=== PATIENT | male | born 1995 | race Caucasian/White ===

== ENCOUNTER 2018-04-14 04:17 | Inpatient (IN) | payer BC ==
[~2018-04-14] VITALS: Ht 172.7 cm; Wt 58.4 kg
[2018-04-14 06:47] VITALS: BP 105/53; PULSE 53; RESP 16; TEMP 97.8; O2SAT 98
[2018-04-14] MEDS ORDERED: diphenhydrAMINE HCL 50 MG CAP - HS PRN PO (07:45)
[2018-04-14] MEDS ORDERED: ALUMINUM/MAGNESIUM/SIMETH 30 ML CUP PO PRN (07:45)
[2018-04-14] MEDS ORDERED: LORazepam 2 MG/ML VIAL IM PRN (07:45)
[2018-04-14] MEDS ORDERED: MAGNESIUM HYDROXIDE SUSP 30 ML CUP PO PRN (07:45)
[2018-04-14] MEDS ORDERED: diphenhydrAMINE HCL 50 MG/ML VIAL - HS PRN IM (07:45)
[2018-04-14] MEDS ORDERED: LORazepam 1 MG TAB PO PRN (07:45)
[2018-04-14] MEDS ORDERED: ACETAMINOPHEN 325 MG TAB PO PRN (07:45)
[2018-04-14] MEDS ORDERED: hydrOXYzine HCL 50 MG TAB PO PRN (07:45)
[2018-04-14] MEDS: NICOTINE 21 MG/24 HR PATCH T-DERMAL SCH (09:00)
[2018-04-14] MEDS: buPROPion HCL 150 MG SUSTAINED RELEASE TAB PO SCH (12:00)
[2018-04-14] MEDS: REMOVE OLD NICOTINE PATCH T-DERMAL SCH (13:02)
--- NOTE | 2018-04-14 13:40 | HHI.HP ---
Provisional Diagnosis Admission Date April 14, 2018 at 05:35 Timnath I. Major depressive disorder Certification of Person's Competence To Provide Express and Informed Consent I have personally examined Wagner Alfredo , a person being served at [facility] on, April 14, 2018 13:20. Express and informed consent means consent voluntarily given in writing, by a competent person, after sufficient explanation and disclosure of the subject matter involved to enable the person to make a knowing and willful decision without any element of force, fraud, deceit, duress, or other form of constraint or coercion. This person is 18 years of age or older, is not now known to be incompetent to consent to treatment with a guardian advocate, and does not have a health care surrogate or proxy currently making medical treatment decisions. I have found this person to be one of the following: [xxx] Competent to provide express and informed consent, as defined above, for voluntary admission to this facility and is competent to provide express and informed consent for treatment. He/she has the consistent capacity to make well reasoned, willful, and knowing decisions concerning his or her medical or mental health treatment. The person fully and consistently understands the purpose of the admission for examination/placement and is fully capable of personally exercising all rights assured [place] [] Incompetent to provide express and informed consent to voluntary admission, and this is incompetent to provide express and informed consent to treatment. The person must be transferred to involuntary status and a petition for a guardian advocate filed with the Circuit Court. [] Refusing to provide express and informed consent to voluntary admission but is competent to provide express and informed consent for treatment. The person must be discharged or transferred to involuntary status. Form shall be completed within 24 hours of a person's arrival at the receiving facility and filed in the clinical record of each person: 1. Admitted on a voluntary basis 2. Permitted to provide express and informed consent to his/her own treatment 3. Allowed to transfer from involuntary to voluntary status 4. Prior to permitting a person to consent to his or her own treatment after having been previously found incompetent to consent to treatment. History of Present Illness Capacity: Has Capacity HPI Patient is a 22-year-old man, , unemployed, with no past psychiatric history, no previous psychiatric admissions, no previous suicide attempt or self-injurious behavior, with substance use history significant for recreational marijuana use, no past medical history, who was transferred from medical Hospital after patient was brought in by EMS due to suicide attempt via overdose which patient was admitted to the inpatient psychiatry for further evaluation and management. Patient reports that for the past couple of weeks he had been noticing having decreased sleep, appetite, concentration, I have been feeling depressed after and daughter have left to [place] along with feelings of guilt, feeling hopeless and having suicidal ideation recently. She denies as patient states that he has been feeling guilty of "not being there to support my ".. Patient reports having had suicide ideations on the day of his overdose which she took 6-8 tablets of ibuprofen in attempt to end his life but after ingesting the tablets have regretted doing so and has self-induced vomiting in contact us and about what he had done which she had called marijuana was brought to the hospital for further evaluation. Patient states that he immediately regretted what he had done and wanted to states that he is feeling very lonely and very sad due to missing his and daughter although states that he has family living near the area that he could have called for support but did not. Patient states that he is feeling remorseful recent actions, noted to be tearful during interview states that it was "stupid thing to do". Patient this time continues report feeling down but denying any's current suicide ideations at this time nor any homicidal ideations , perceptual disturbances or delusions. Family psychiatric history: Aunt with depression, no suicide in the family Past psychiatric history: No previous psychiatric diagnoses, no prior psychiatric admissions, no previous suicide attempt or self-injurious behavior, no outpatient mental health provider. No previous medication trials, history of abuse. Substance use history: Tobacco use 1 pack per day, alcohol use once per month usually more than 6 beers at a time, last use was 1 month ago. Marijuana use 3 times a month usually one joint at a time last time being 1 week ago. Patient denies use of any other drugs. Patient denies any previous detox or rehabilitation programs. Past medical history: Denies Allergies: NKDA Social history: , has 1 2-year-old daughter and are most moved recently to [place], is employed, no history of service or access to firearms. No legal history in the past. Review of Systems Except as stated in HPI: all other systems reviewed are Neg Past Psych History Psychological trauma history Denies Violence risk - others (6 mos) Low Violence risk - self (6 mos) Elevated due to recent suicide attempt Substance Abuse History Drugs/Alcohol past 12 months Tobacco use 1 pack per day, alcohol use once per month usually more than 6 beers at a time, last use was 1 month ago. Marijuana use 3 times a month usually one joint at a time last time being 1 week ago. Patient denies use of any other drugs. Patient denies any previous detox or rehabilitation programs. Past Family Social History Coded Allergies: No Known Allergies (Unverified , 04/14/18) Current Medications Medications (Trade) Dose Ordered Sig/Francisco Route Start Time Stop Time Status Last Admin (Ativan) 1 mg Q6H PRN PO 04/14/18 07:45 (Ativan Inj) 1 mg Q6H PRN IM 04/14/18 07:45 (Benadryl) 50 mg HS PRN PO 04/14/18 07:45 (Benadryl Inj) 50 mg HS PRN IM 04/14/18 07:45 (Tylenol) 650 mg Q4H PRN PO 04/14/18 07:45 (Milk Of Magnesia Liq) 30 ml DAILY PRN PO 04/14/18 07:45 (Mag-Al Plus Susp Liq) 30 ml Q6H PRN PO 04/14/18 07:45 (Habitrol 21 Mg Patch.24 Hr) 1 patch DAILY T-DERMAL 04/14/18 09:00 Miscellaneous Information 1 HS T-DERMAL 04/14/18 21:00 (Wellbutrin Sr) 150 mg DAILY PO 04/14/18 12:00 04/14/18 12:00 Family Psych History Aunt with depression Social History , has 1 2-year-old daughter and are most moved recently to [place], is employed, no history of service or access to firearms. No legal history in the past. Patient's Strengths (min. 2) Verbal and communicative Physical Exam Patient not noted to be in acute distress, no gross motor abnormalities, no tremors or EPS, no noted psychomotor retardation or agitation. Vital Signs Vital Signs Date Time Temp Pulse Resp B/P (MAP) Pulse Ox O2 Delivery O2 Flow Rate FiO2 04/14/18 06:47 97.8 53 16 105/53 (70) 98 Mental Status Examination Appearance: Disheveled Consciousness: Alert Orientation: Person, Place, Date/Time Motor Activity: Normal gait Speech: Unremarkable Language: Adequate Fund of Knowledge: Inadequate Attention and Concentration: Adequate Memory: Unremarkable Mood: Sad Affect: Sad, Other (Tearful) Thought Process & Associations: Intact, Linear Thought Content: Appropriate Hallucination Type: None Delusion Type: None Suicidal Ideation: Yes (Denies today) Suicidal Plan: No Suicidal Intention: No Homicidal Ideation: No Homicidal Plan: No Homicidal Intention: No Insight: Poor Judgment: Poor Assessment & Plan Problem List: (1) Major depressive disorder, single episode, severe without psychotic features ICD Codes: F32.2 - Major depressive disorder, single episode, severe without psychotic features Assessment & Plan Estimated LOS: 5-7 days. Patient is a 22-year-old man, , unemployed, with no past psychiatric history, no previous psychiatric admissions , no previous suicide attempt or self-injurious behavior, with substance use history significant for recreational marijuana use, no past medical history, who was transferred from medical Hospital after patient was brought in by EMS due to suicide attempt via overdose which patient was admitted to the inpatient psychiatry for further evaluation and management. Patient with significant depressive symptoms along with recent suicide attempt which patient requires inpatient psychiatric stabilization and safety. We will start patient on bupropion XL150 mg p.o. daily for depression, we will continue monitor mood and behavior. Patient will be admitted under voluntary status. Collateral formation pending (Genet Alfredo - aunt [phone]). Social work intervention for psychosocial assessment. Discharge planning in progress. Discharge Planning Back to his residence once psychiatrically clear Jameson Rodriguez MD April 14, 2018 13:40
[2018-04-15 04:48] VITALS: BP 108/61; PULSE 58; RESP 16; TEMP 97.8; O2SAT 99
[2018-04-15] MEDS: buPROPion HCL 150 MG SUSTAINED RELEASE TAB PO SCH (08:34)
[2018-04-15] MEDS: NICOTINE 21 MG/24 HR PATCH T-DERMAL SCH (09:00)
[2018-04-15 10:49] LABS: BICARBONATE 32.2 MEQ/L (21.0-32.0); BLOOD UREA NITROGEN 11 MG/DL (7-18); CALCIUM 8.9 MG/DL (8.5-10.1); CHLORIDE 102 MEQ/L (98-107); CHOLESTEROL 117 MG/DL (120-200); CREATININE 1.16 MG/DL (0.60-1.30); GLOMERULAR FILTRATION RATE 77 ML/MIN (>89); GLUCOSE,RANDOM 106 MG/DL (74-106); SODIUM (NA) 140 MEQ/L (136-145); TRIGLYCERIDES 41 MG/DL (42-150)
[2018-04-15 10:58] LABS: CHOLESTEROL/ HDL RATIO 2.47 RATIO; HDL CHOLESTEROL 47.2 MG/DL (40.0-60.0); LDL CHOLESTEROL 62 MG/DL (0-99)
--- NOTE | 2018-04-15 11:17 | EKG ---
Date Performed: 04/15/2018 Time Performed: 10:14:32 PTAGE: 22 years EKG: Sinus rhythm WITH FIRST DEGREE AV BLOCK WITH OCCASIONAL VENTRICULAR PREMATURE COMPLEXES ABNORMAL ECG NO PREVIOUS TRACING DOCTOR: Chilo Shelton Interpretating Date/Time 04/15/2018 11:15:38
[2018-04-15 11:44] LABS: HEMOGLOBIN A1C 5.3 % (4.3-6.0)
--- NOTE | 2018-04-15 15:10 | HHI.PYPN ---
Subjective Remarks Pt seen and discussed with staff. He was admitted yesterday due to suicide attempt via OD on ibuprofen. Pt states that he slept well last night. He has been compliant with medications and attending groups, but engages in limited socialization in milieu. Denies SI/HI today. He lennie medication side effects. Mental Status Examination Appearance: Disheveled Consciousness: Alert Orientation: Person, Place, Date/Time Motor Activity: Normal gait Speech: Unremarkable Language: Adequate Fund of Knowledge: Inadequate Attention and Concentration: Adequate Memory: Unremarkable Mood: Sad, Other (depressed) Affect: Sad, Blunt Thought Process & Associations: Intact, Linear Thought Content: Appropriate Hallucination Type: None Delusion Type: None Suicidal Ideation: No (denies today) Suicidal Plan: No Suicidal Intention: No Homicidal Ideation: No Homicidal Plan: No Homicidal Intention: No Insight: Poor Judgment: Poor Results Labs Test 04/15/18 09:34 Blood Urea Nitrogen 11 MG/DL Creatinine 1.16 MG/DL Random Glucose 106 MG/DL Calcium Level 8.9 MG/DL Sodium Level 140 MEQ/L Potassium Level 3.7 MEQ/L Chloride Level 102 MEQ/L Carbon Dioxide Level 32.2 MEQ/L Anion Gap 6 MEQ/L Estimat Glomerular Filtration Rate 77 ML/MIN Hemoglobin A1c 5.3 % Triglycerides Level 41 MG/DL Cholesterol Level 117 MG/DL LDL Cholesterol 62 MG/DL HDL Cholesterol 47.2 MG/DL Cholesterol/HDL Ratio 2.47 RATIO Thyroid Stimulating Hormone 3rd Gen 1.180 uIU/ML Vitals/IOs Vital Signs Date Time Temp Pulse Resp B/P (MAP) Pulse Ox O2 Delivery O2 Flow Rate FiO2 04/15/18 04:48 97.8 58 16 108/61 (77) 99 Assessment & Plan Problem List: (1) Major depressive disorder, single episode, severe without psychotic features ICD Codes: F32.2 - Major depressive disorder, single episode, severe without psychotic features Assessment & Plan Continue current tx plan. Estimated LOS: days Justification for Cont. Inpt. impairments in safety Sarah Michel MD April 15, 2018 15:10
[2018-04-15 17:33] VITALS: BP 116/71; PULSE 89; RESP 18; TEMP 97.4; O2SAT 97
[2018-04-15] MEDS: REMOVE OLD NICOTINE PATCH T-DERMAL SCH (20:20)
[2018-04-16 05:53] VITALS: BP 107/64; PULSE 70; RESP 16; TEMP 97.7; O2SAT 98
[2018-04-16] MEDS: buPROPion HCL 150 MG SUSTAINED RELEASE TAB PO SCH (08:39)
[2018-04-16] MEDS: NICOTINE 21 MG/24 HR PATCH T-DERMAL SCH (09:00)
--- NOTE | 2018-04-16 13:21 | HHI.PYPN ---
Subjective Remarks Pt seen and discussed with staff. He has been out of room and participating in groups today. He has been compliatn with medications and denies jaky eeffects. no SI/HI Mental Status Examination Appearance: Disheveled Consciousness: Alert Orientation: Person, Place, Date/Time Motor Activity: Normal gait Speech: Unremarkable Language: Adequate Fund of Knowledge: Inadequate Attention and Concentration: Adequate Memory: Unremarkable Mood: Sad, Other (depressed) Affect: Sad, Blunt Thought Process & Associations: Intact, Linear Thought Content: Appropriate Hallucination Type: None Delusion Type: None Suicidal Ideation: No (denies today) Suicidal Plan: No Suicidal Intention: No Homicidal Ideation: No Homicidal Plan: No Homicidal Intention: No Insight: Poor Judgment: Poor Results Vitals/IOs Vital Signs Date Time Temp Pulse Resp B/P (MAP) Pulse Ox O2 Delivery O2 Flow Rate FiO2 04/16/18 05:53 97.7 70 16 107/64 (78) 98 Assessment & Plan Problem List: (1) Major depressive disorder, single episode, severe without psychotic features ICD Codes: F32.2 - Major depressive disorder, single episode, severe without psychotic features Assessment & Plan Continue current tx plan.Estimated LOS: days Justification for Cont. Inpt. monitoring for safety given recent suicide attempt Sarah Michel MD April 16, 2018 13:21
[2018-04-16 18:27] VITALS: BP 117/66; PULSE 55; RESP 16; TEMP 98.5; O2SAT 100
[2018-04-16] MEDS: REMOVE OLD NICOTINE PATCH T-DERMAL SCH (21:00)
[2018-04-17 05:25] VITALS: BP 111/55; PULSE 50; RESP 16; TEMP 98.2; O2SAT 100
[2018-04-17] MEDS: NICOTINE 21 MG/24 HR PATCH T-DERMAL SCH (09:00)
[2018-04-17] MEDS: buPROPion HCL 150 MG SUSTAINED RELEASE TAB PO SCH (09:32)
--- NOTE | 2018-04-17 10:27 | PD.TTN ---
Patient Problems 1. Discharge planning 2. Medication compliance 3. Knowledge deficit 4. Lack of coping skills Progress Toward Goals Provider Present: Dr. Ruy Rodriguez Provider Input: Dr. Rai's treatment team met to discuss patient's treatment plan, discharge, and medication. Patient is doing well and will discharged today. Nurse(s) Input: Patient's nurse reports patient has some insight. Patient is medication compliant, no behavioral problem on unit. Psych Therapist Input: Patient is doing well. Patient is being discharged today. Patient denies suicidal and homicidal ideation, Patient's speech is clear and organized. Group Spec/RT/OT/ROMERO Present: HEATHER Sal Group Spec/RT/OT/ROMERO Input: Patient does not attend any groups Sudha Fernandez [facility] April 17, 2018 10:27
[2018-04-17] MEDS ORDERED: BUPR150CR PO (11:39)
--- NOTE | 2018-04-17 17:21 | HHI.DS ---
Psychiatry Discharge Summary Inpatient Psychiatric care?: Yes Advance Directive: No Mental Health AdvanceDirective: No Health Care Proxy: No Admission Admission Date April 14, 2018 at 05:35 Admission Diagnosis: (1) Major depressive disorder, single episode, severe without psychotic features ICD Code: F32.2 - Major depressive disorder, single episode, severe without psychotic features Brief History Patient is a 22-year-old man, , unemployed, with no past psychiatric history, no previous psychiatric admissions, no previous suicide attempt or self-injurious behavior, with substance use history significant for recreational marijuana use, no past medical history, who was transferred from medical Hospital after patient was brought in by EMS due to suicide attempt via overdose which patient was admitted to the inpatient psychiatry for further evaluation and management. Patient reports that for the past couple of weeks he had been noticing having decreased sleep, appetite, concentration, I have been feeling depressed after and daughter have left to [place] along with feelings of guilt, feeling hopeless and having suicidal ideation recently. She denies as patient states that he has been feeling guilty of "not being there to support my ".. Patient reports having had suicide ideations on the day of his overdose which she took 6-8 tablets of ibuprofen in attempt to end his life but after ingesting the tablets have regretted doing so and has self-induced vomiting in contact us and about what he had done which she had called marijuana was brought to the hospital for further evaluation. Patient states that he immediately regretted what he had done and wanted to states that he is feeling very lonely and very sad due to missing his and daughter although states that he has family living near the area that he could have called for support but did not. Patient states that he is feeling remorseful recent actions, noted to be tearful during interview states that it was "stupid thing to do". Patient this time continues report feeling down but denying any's current suicide ideations at this time nor any homicidal ideations , perceptual disturbances or delusions. Family psychiatric history: Aunt with depression, no suicide in the family Past psychiatric history: No previous psychiatric diagnoses, no prior psychiatric admissions, no previous suicide attempt or self-injurious behavior, no outpatient mental health provider. No previous medication trials, history of abuse. Substance use history: Tobacco use 1 pack per day, alcohol use once per month usually more than 6 beers at a time, last use was 1 month ago. Marijuana use 3 times a month usually one joint at a time last time being 1 week ago. Patient denies use of any other drugs. Patient denies any previous detox or rehabilitation programs. Past medical history: Denies Allergies: NKDA Social history: , has 1 2-year-old daughter and are most moved recently to [place], is employed, no history of service or access to firearms. No legal history in the past. Tobacco Use In Past 30 Days: 4 or Less Cigarettes/Day Alcohol Use: Never Hospital Course Patient is a 22-year-old man, , unemployed, with no past psychiatric history, no previous psychiatric admissions, no previous suicide attempt or self-injurious behavior, with substance use history significant for recreational marijuana use, no past medical history, who was transferred from medical Hospital after patient was brought in by EMS due to suicide attempt via overdose which patient was admitted to the inpatient psychiatry for further evaluation and management. Patient was started on buproprion XL 150mg PO daily which he tolerated well with no adverse drug reactions. Patient initially with depressed mood but symptoms were lessening with treatment, participation in groups and with mileu of the unit. Patient continued to maintain stable mood, with no manic, depressive or psychotic symptoms noted. He was calm and cooperative with staff, compliant with medications and had no behavioral disturbances since admission. Upon discharge patient stated feeling good, stated feeling okay with returning back home with aunt involved for support; noted to be calm and cooperative and stated that he would be willing to continue treatment and follow-up. He agreed to continuing medical recommendations, treatment and cooperate for continuity of care. Patient; denies SI, HI, AVH or delusions. Supportive psychotherapy provided. Patient advised to call 911 or go nearest ED in case of emergency. Patient agreed with plan. Results Blood Pressure 111 / 55 Vital Signs Date Time Temp Pulse Resp B/P (MAP) Pulse Ox O2 Delivery O2 Flow Rate FiO2 04/17/18 05:25 98.2 50 16 111/55 (73) 100 Laboratory Tests Test 04/15/18 09:34 Carbon Dioxide Level 32.2 MEQ/L (21.0-32.0) Estimat Glomerular Filtration Rate 77 ML/MIN (>89) Triglycerides Level 41 MG/DL (42-150) Cholesterol Level 117 MG/DL (120-200) Laboratory Results Test 04/15/18 09:34 Cholesterol Level 117 MG/DL (120-200) HDL Cholesterol 47.2 MG/DL (40.0-60.0) Hemoglobin A1c 5.3 % (4.3-6.0) LDL Cholesterol 62 MG/DL (0-99) Triglycerides Level 41 MG/DL (42-150) Summary of Procedures None Pending results at discharge: No Medications # of Antipsychotic meds at D/C: 0 Approp Antipsych med options 1 - Minimum of three failed multiple trials of monotherapy. 2 - Documented plan to taper to monotherapy due to previous use of multiple meds OR cross-taper in progress at D/C. 3 - Documentation of augmentation of Clozapine. 4 - Justification other than those listed in allowable values 1-3, document here : Discharge Discharge Date: April 17, 2018 Discharge Diagnosis: (1) Major depressive disorder, single episode, severe without psychotic features ICD Code: F32.2 - Major depressive disorder, single episode, severe without psychotic features Pt Condition on Discharge: Stable Discharge Disposition: Discharge Home Discharge Instructions Diet Instructions: As Tolerated, No Restrictions Activities you can perform: Regular-No Restrictions Scheduled Appointment: [facility] Discharge Time > 30 minutes Mental Status Examination Appearance: Appropriate Consciousness: Alert Orientation: Person, Place, Date/Time Motor Activity: Normal gait Speech: Unremarkable Language: Adequate Fund of Knowledge: Inadequate Attention and Concentration: Adequate Memory: Unremarkable Mood: Appropriate Affect: Appropriate, Blunt Thought Process & Associations: Intact, Goal directed, Linear Thought Content: Appropriate Hallucination Type: None Delusion Type: None Suicidal Ideation: No Suicidal Plan: No Suicidal Intention: No Homicidal Ideation: No Homicidal Plan: No Homicidal Intention: No Insight: Adequate Judgment: Adequate Discharge/Advance Care Plan Health Problems: (1) Major depressive disorder, single episode, severe without psychotic features Goals to promote your health * To prevent worsening of your condition and complications * To maintain your health at the optimal level Directions to meet your goals Take your medications as prescribed Follow your dietary instruction Follow activity as directed Keep your appointments as scheduled Take your immunizations and boosters as scheduled If your symptoms worsen call your PCP, if no PCP go to Urgent Care Center or Emergency Room For 20/06 questions related to your inpatient stay or results of tests pending at discharge, please contact Dr. Jameson Rodriguez at Smoking is Dangerous to Your Health. Avoid second hand smoking Jameson Rodriguez MD April 17, 2018 17:21
== END 2018-04-17 12:45 | disposition home or self-care (01) | DRG 885 ==
LOC: H260 05:35
PROVIDERS: ADMIT Student in an Organized Health Care Education/Training Program; ATTEND Student in an Organized Health Care Education/Training Program
DX: F32.2 Major depressive disorder, single episode, severe without psychotic features (principal); F17.210 Nicotine dependence, cigarettes, uncomplicated; F12.90 Cannabis use, unspecified, uncomplicated; Z81.8 Family history of other mental and behavioral disorders; Z91.5 Personal history of self-harm
CPT/HCPCS: 80048; 80061; 83036; 84443; 93005